=== PATIENT | male | born 1965 ===

== ENCOUNTER → 2020-04-28 | Outpatient (CLI) | payer OTHER ==
[~2020-04-28] MED LIST: IODINE/POTASS IOD (LUGOLS) BOTTLE TOPICAL ONE
--- NOTE | 2020-04-29 08:06 | NM ---
EXAMINATION TYPE: NM DatScan Brain SPECT DATE OF EXAM: 04/28/2020 COMPARISON: NONE HISTORY: 55-year-old male G25.0, tremor TECHNIQUE: 10 drops of Lugol's solution was administered 1 hour prior to injection as a thyroid bloc meghan agent. After the administration of 4.55 mCi I-123 Ioflupane DaTscan. Images obtained 3 hours p ost injection. SPECT images of the brain were acquired with axial and coronal reconstructions. FINDINGS: There is significant asymmetric blunting of the normal, comma-shaped appearance of the right corpus s triatum. Slight blunting is felt to be present on the left as well. IMPRESSION: Reduction in activity within the right greater than left corpus striatum can be seen with either idio pathic Parkinson's disease or a Parkinsonian syndrome.
== END | disposition home or self-care (01) ==
LOC: RADNMMAIN 10:57
PROVIDERS: ATTEND Psychiatry & Neurology Neurology
DX: G93.89 Other specified disorders of brain (principal)
CPT/HCPCS: 78803; A9584